=== PATIENT | female | born 2000 | race Caucasian/White ===

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

== ENCOUNTER → 2018-11-14 | Outpatient (CLI) | payer OTHER ==
[~2018-11-14] MED LIST: CIPRO 500MG TA500 MG PO; NORCO 325 MG-51 TAB PO; ZOFRAN ODT4 MG PO
== END ==
LOC: MC.RAD 09:40
DX: N63.21 Unspecified lump in the left breast, upper outer quadrant (principal)

== ENCOUNTER 2019-04-07 21:05 | Emergency (ER) | payer OTHER ==
[~2019-04-07] VITALS: Ht 165.1 cm; Wt 45.5 kg
[2019-04-07 21:10] VITALS: TEMP 98.5
[2019-04-07] MEDS ORDERED: YAZ 28 3 MG-0.01 TAB PO (23:03)
[2019-04-08 00:25] VITALS: BP 105/70; PULSE 60
== END 2019-04-08 00:40 | disposition home or self-care (01) ==
LOC: COL.ER 21:05
DX: R51 Headache (principal); F17.210 Nicotine dependence, cigarettes, uncomplicated; Z90.89 Acquired absence of other organs
CPT/HCPCS: J1200; J1885; J2765; J7030

== ENCOUNTER 2021-01-17 17:32 | Emergency (ER) | payer OTHER ==
[~2021-01-17] VITALS: Ht 165.1 cm; Wt 45.0 kg
[~2021-01-17 17:32] MED LIST changes: +YAZ 28 3 MG-0.01 TAB PO
[2021-01-17 17:47] VITALS: TEMP 98.4
[2021-01-17 18:07] LABS: COLLECTION METHOD CLEAN CATCH
[2021-01-17 18:17] LABS: BASO % 0.5 % (0.0-2.0); EOS # 0.2 (0.0-0.7); EOS % 2.6 % (0-4.0); GRAN # 4.6 (1.4-6.5); GRAN % 52.6 % (42.2-75.2); HEMATOCRIT 41.8 % (37.0-47.0); HEMOGLOBIN 14.5 g/dl (12.5-16.0); LYMPH # 3.3 (1.2-3.4); MEAN CELL VOLUME 91 fl (80.0-100.0); MEAN CORPUSCULAR HEMOGLOBIN 32 pg (27.0-31.0); MEAN CORPUSCULAR HGB CONC 35 g/dl (33.0-37.0); MEAN PLATELET VOLUME 9.3 fl (7.4-10.4); MONO # 0.5 (0.1-0.6); MONO % 6.1 % (1.7-9.3); PLATELET COUNT 299 K/mm3 (130-400); RED BLOOD COUNT 4.61 M/mm3 (4.10-5.30); REDCELL DISTRIBUTION WIDTH-CV 11.9 % (11.5-14.5)
[2021-01-17 18:19] LABS: MUCOUS Present /lpf; PH 7 (5-8); URINE APPEARANCE Cloudy; URINE BACTERIA Many /hpf; URINE BILIRUBIN Negative (NEGATIVE); URINE BLOOD Negative (NEGATIVE); URINE COLOR Yellow; URINE GLUCOSE Negative (NEGATIVE); URINE KETONE Negative (NEGATIVE); URINE LEUKOCYTE ESTERASE Negative (NEGATIVE); URINE NITRATE Negative (NEGATIVE); URINE PROTEIN(semi-quant) Negative (NEGATIVE); URINE UROBILINOGEN Negative (NEGATIVE)
[2021-01-17 18:25] LABS: TRICYCLIC ANTIDEPRESS URINE NEGATIVE
[2021-01-17 18:28] LABS: ALANINE AMINOTRANSFERASE 11 U/L (4-34); ALBUMIN 4.3 gm/dL (3.5-5.0); ALKALINE PHOSPHATASE 44 U/L (50-136); ANION GAP 5 mmol/L (7-16); AST,SGOT 28 U/L (15-37); BILIRUBIN,TOTAL 0.2 mg/dL (0.0-1.0); BLOOD UREA NITROGEN 8 mg/dL (7-17); CALCIUM 9.3 mg/dL (8.4-10.2); CARBON DIOXIDE 26 mmol/L (22-30); CHLORIDE 106 mmol/L (98-107); CREATININE, serum 0.67 (0.52-1.25); GLUCOSE 95 mg/dL (74-106); POTASSIUM 3.3 mmol/L (3.4-5.0); SODIUM 137 mmol/L (137-145); TOTAL PROTEIN 7.9 gm/dL (6.4-8.2)
[2021-01-17 18:30] LABS: ACETAMINOPHEN < 10 ug/mL (10-30); ALCOHOL(ethanol),MEDICAL < 10 mg/dL; SALICYLATE < 1.0 mg/dL
[2021-01-17] MEDS ORDERED: EFFEXOR XR75 MG/CAP PO (18:34)
[2021-01-17] MEDS ORDERED: EFFEXOR XR37.5 MG/CA PO (18:34)
[2021-01-17] MEDS ORDERED: PERIACTIN 4MG TA4 MG PO (18:35)
[2021-01-17 20:20] VITALS: BP 131/89; PULSE 90
== END 2021-01-17 20:20 | disposition home or self-care (01) ==
LOC: COL.ER 17:32
PROVIDERS: Nurse Practitioner
DX: R45.851 Suicidal ideations (principal); F32.9 Major depressive disorder, single episode, unspecified; Z79.899 Other long term (current) drug therapy

== ENCOUNTER 2021-03-29 22:35 | Emergency (ER) | payer OTHER ==
[~2021-03-29] VITALS: Ht 165.1 cm; Wt 45.5 kg
[~2021-03-29 22:35] MED LIST changes: +EFFEXOR XR37.5 MG/CA PO; +EFFEXOR XR75 MG/CAP PO; +PERIACTIN 4MG TA4 MG PO
[2021-03-30 00:39] LABS: BASO # 0.1 (0.0-0.2); BASO % 0.5 % (0.0-2.0); EOS # 0.7 (0.0-0.7); EOS % 5.6 % (0-4.0); GRAN # 7.3 (1.4-6.5); HEMATOCRIT 39.9 % (37.0-47.0); HEMOGLOBIN 14.1 g/dl (12.5-16.0); LYMPH # 2.8 (1.2-3.4); LYMPH % 23.7 % (20.0-51.0); MEAN CELL VOLUME 89 fl (80.0-100.0); MEAN CORPUSCULAR HEMOGLOBIN 31 pg (27.0-31.0); MEAN CORPUSCULAR HGB CONC 35 g/dl (33.0-37.0); MEAN PLATELET VOLUME 9.2 fl (7.4-10.4); MONO # 0.8 (0.1-0.6); MONO % 6.9 % (1.7-9.3); PLATELET COUNT 354 K/mm3 (130-400); RED BLOOD COUNT 4.49 M/mm3 (4.10-5.30)
[2021-03-30 00:53] LABS: ALANINE AMINOTRANSFERASE 11 U/L (4-34); ALKALINE PHOSPHATASE 48 U/L (50-136); ANION GAP 6 mmol/L (7-16); AST,SGOT 21 U/L (15-37); BILIRUBIN,TOTAL 0.3 mg/dL (0.0-1.0); BLOOD UREA NITROGEN 13 mg/dL (7-17); C-REACTIVE PROTEIN < 0.5 mg/dL (0.0-0.9); CALCIUM 9.1 mg/dL (8.4-10.2); CARBON DIOXIDE 28 mmol/L (22-30); CHLORIDE 103 mmol/L (98-107); CREATININE, serum 0.75 (0.52-1.25); GLUCOSE 109 mg/dL (74-106); POTASSIUM 3.3 mmol/L (3.4-5.0); SODIUM 137 mmol/L (137-145); TOTAL PROTEIN 7.3 gm/dL (6.4-8.2)
[2021-03-30] MEDS ORDERED: NORCO 325 MG-51 TAB PO (01:40)
[2021-03-30] MEDS ORDERED: CEFTIN500 MG PO (01:40)
[2021-03-30] MEDS ORDERED: FLAGYL500 MG PO (01:40)
[2021-03-30 02:16] VITALS: BP 118/74; PULSE 90; TEMP 98.5
== END 2021-03-30 02:16 | disposition home or self-care (01) ==
LOC: COL.ER 22:35
PROVIDERS: Emergency Medicine
DX: S61.210A Laceration without foreign body of right index finger without damage to nail, initial encounter (principal); F31.9 Bipolar disorder, unspecified; F17.210 Nicotine dependence, cigarettes, uncomplicated; Z79.899 Other long term (current) drug therapy; W53.11XA Bitten by rat, initial encounter
CPT/HCPCS: J0696; J1200; J3010

== ENCOUNTER 2021-12-19 15:55 | Emergency (ER) | payer OTHER ==
[~2021-12-19] VITALS: Ht 165.1 cm; Wt 45.5 kg
[~2021-12-19 15:55] MED LIST changes: +CEFTIN500 MG PO; +FLAGYL500 MG PO
[2021-12-19 16:14] VITALS: TEMP 98.2
[2021-12-19] MEDS ORDERED: CEPHALEXIN500 M1 PO (16:45)
[2021-12-19] MEDS ORDERED: NORCO 325 MG-51 TAB PO (16:45)
[2021-12-19 17:33] VITALS: BP 113/74; PULSE 89
== END 2021-12-19 17:36 | disposition home or self-care (01) ==
LOC: COL.ER 15:55
DX: T24.212A Burn of second degree of left thigh, initial encounter (principal); T24.211A Burn of second degree of right thigh, initial encounter; T31.0 Burns involving less than 10% of body surface; F17.210 Nicotine dependence, cigarettes, uncomplicated; Z23 Encounter for immunization; X12.XXXA Contact with other hot fluids, initial encounter

== ENCOUNTER 2024-01-15 00:35 | Emergency (ER) | payer OTHER ==
[~2024-01-15] VITALS: Ht 165.1 cm; Wt 50.0 kg
[~2024-01-15 00:35] MED LIST changes: +CEPHALEXIN500 M1 PO
[2024-01-15 00:51] VITALS: TEMP 98.4
[2024-01-15] MEDS ORDERED: Ibuprofen 600 MG TAB PO ONE (01:45)
[2024-01-15] MEDS ORDERED: NORCO 325 MG-51 TAB PO (03:03)
[2024-01-15 04:27] VITALS: BP 118/62; PULSE 80
== END 2024-01-15 04:25 | disposition home or self-care (01) ==
LOC: COL.ER 00:35
DX: S62.306A Unspecified fracture of fifth metacarpal bone, right hand, initial encounter for closed fracture (principal); F17.290 Nicotine dependence, other tobacco product, uncomplicated; W22.01XA Walked into wall, initial encounter